=== PATIENT | male | born 1930 | race Caucasian/White ===

== ENCOUNTER → 2017-02-05 | Outpatient (CLI) | payer BC | LOC: FIMAGING 14:53 | PROVIDERS: ATTEND Family Medicine | DX: M51.36 Other intervertebral disc degeneration, lumbar region (principal); M43.12 Spondylolisthesis, cervical region ==

== ENCOUNTER 2018-04-15 16:11 | Emergency (ER) | payer BC ==
[2018-04-15 16:43] VITALS: BP 142/88
--- NOTE | 2018-04-15 17:25 | EDPHY ---
H & P Time Seen by Provider: 04/15/18 17:04 HPI/ROS: CHIEF COMPLAINT: Right ankle pain HISTORY OF PRESENT ILLNESS: The patient is an 87-year-old male presents emergency department right ankle pain. Patient was snowboarding when he caught a snowboard underneath the ski lift. This twisted his ankle. He is able to snowboard down the mountain but now has increasing pain when he ambulates. His pain is moderate. No previous ankle injury. REVIEW OF SYSTEMS: Negative Past medical history: No previous ankle injuries Smoking Status: Never smoked Physical Exam: General Appearance: Alert and no distress. Head: Pupils equal. Normal. Respiratory: No respiratory distress. Cardiac: regular rate and rhythm. Extremities: Patient has a swollen right lateral malleolus. The lateral malleolus is tender to the touch. There is mild tenderness to palpation over the deltoid ligament. No foot tenderness palpation. No proximal tib-fib tenderness to palpation. Full range of motion, normal appearing. Skin: No rashes or lesions. Neuro: Alert. Normal mood and affect. Constitutional: Initial Vital Signs Temperature (C) 37 C 04/15/18 16:40 Heart Rate 84 04/15/18 16:40 Respiratory Rate 18 04/15/18 16:40 Blood Pressure 142/88 H 04/15/18 16:40 O2 Sat (%) 94 04/15/18 16:40 O2 Delivery Mode Room Air Allergies/Adverse Reactions: No Known Allergies Allergy (Unverified 04/15/18 16:40) Home Medications: Medication Instructions Recorded NK [No Known Home Meds] 04/15/18 Medical Decision Making - Diagnostics Imaging Results: Imaging Impressions Ankle X-Ray 04/15/18 16:46 Impression: Likely unstable distal fibular fracture. ED Course/Re-evaluation: In the emergency department I discussed possible etiologies with the patient. I answered all his questions. X-ray was ordered. Ankle x-ray: Please refer the dictated report. The patient has a distal fibular fracture. I discussed the results with the patient. Patient was placed in a Aldo boot. He was given crutches. He was instructed to be nonweightbearing totally falls up with Orthopedics. Differential Diagnosis: My differential includes but is not limited to sprain, strain, fracture, dislocation Departure - Departure Disposition: Home, Routine, Self-Care Clinical Impression: Closed right fibular fracture Qualifiers: Encounter type: initial encounter Fibula location: distal Fracture morphology: other fracture Qualified Code(s): S82.831A - Other fracture of upper and lower end of right fibula, initial encounter for closed fracture Condition: Good Instructions: Ankle Fracture (ED) Additional Instructions: Keep your splint in place. You should be nonweightbearing and use her crutches. Call Wednesday morning to make an appointment with Orthopedics. Referrals: Haroldo Montanez MD [Medical Doctor] - 5-7 days, call for appt.
== END 2018-04-15 18:00 | disposition home or self-care (01) ==
DX: S82.831A Other fracture of upper and lower end of right fibula, initial encounter for closed fracture (principal); V00.318A Other snowboard accident, initial encounter; Y93.23 Activity, snow (alpine) (downhill) skiing, snowboarding, sledding, tobogganing and snow tubing; Y92.828 Other wilderness area as the place of occurrence of the external cause; Y99.9 Unspecified external cause status
CPT/HCPCS: L4386